=== PATIENT | female | born 1945 | race Caucasian/White ===

== ENCOUNTER → 2016-10-28 | Outpatient (CLI) | payer MEDICARE ==
[~2016-10-28] MED LIST: ACTOS PO; ACTOS30 MG PO; ALBUTEROL MININEB HHN; ALBUTEROL17 G1 IH; ALDACTONE25 MG PO; ALEVE; ALLOPURINOL300 MG PO; AMBIEN; AMBIEN CR PO; AMBIEN PO; APRESOLINE PO; ASPIRIN; ASPIRIN PO; ASPIRIN81 M1 PO; ASTELIN137 MCG INH; ATIVAN; ATIVAN PO; ATIVAN0.5 MG PO; AVINZA; AVINZA PO; BACLOFEN10 MG; BACLOFEN10 MG PO; BRIMONIDINE TART5 ML OD; CALCIUM VIT D; CALTRATE PLUS T1 TAB PO; CARTIA XT180 MG PO; CATAPRES0.3 MG PO; CHOLESTYRAMINE PO; CLONIDINE; CLONIDINE HCL0.3 MG PO; CLONIDINE PO; CLOTRIMAZOLE-BE45 GM TP; COLCHICINE PO; COLCRYS0.6 MG PO; COLESTID; COLESTID5 GM PO; COUMADIN5 MG PO; COUMADIN6 MG PO; COUMADIN7.5 MG PO; COZAAR PO; DILTIAZEM 24HR120 MG PO; DILTIAZEM 24HR240 MG PO; DITROPAN XL PO; DOCU SOFT100 M1 PO; DULOXETINE HCL60 MG PO; ENALAPRIL MALE2.5 MG PO; FAMOTIDINE PO; FERROUS GLUCON325 M1 PO; FERROUS SU324 ( 65 ); FLAX SEED OIL1000 MG PO; FLONASE 0.05% N16 G1; FLUVOXAMINE MA100 MG PO; FML LIQUIFILM IO; FUROSEMIDE40 MG PO; GABAPENTIN300 MG PO; GLUCOPHAGE XR500 MG; GLUCOPHAGE XR500 MG PO; GLUCOPHAGE850 MG PO; HYDRALAZINE HC100 MG PO; HYDRALAZINE HCL10 MG PO; HYDRALAZINE HCL50 MG PO; HYDROCODON-ACE1 EAC1 PO; HYDROCODON-ACE1 EAC9 PO; HYDROXYZINE HCL25 M1 PO; HYDROXYZINE PAM25 MG PO; IMDUR-ER60 M1 PO; ISOSORBIDE MONO60 M1 PO; K-DUR20 ME1 PO; KCL PO; KEFLEX500 MG PO; KLOR-CON PO; KRISTALOSE10 GM PO; LACTULOSE10 G/15 M1 PO; LACTULOSE10 G/15 M2 PO; LANTUS; LANTUS100 U/ML SUBQ; LASIX PO; LASIX20 MG PO; LASIX80 MG PO; LEVAQUIN PO; LEVAQUIN750 MG PO; LEVOFLOXACIN500 MG PO; LEXAPRO; LEXAPRO PO; LIDODERM30 EA TOP; LISINOPRIL20 MG PO; LOPRESSOR; LOPRESSOR PO; LOPRESSOR100 MG PO; LORAZEPAM0.5 MG PO; LORTAB 10/500 T1 TAB PO; LORTAB 7.5-5001 TAB PO; MACROBID100 MG PO; MAG-OXIDE PO; MAG-OXIDE400 MG PO; MAGNESIUM400 MG PO; MEGACE ES625 MG/5 M PO; MEGACE ORA400 MG/10 PO; METFORMIN HCL850 MG PO; METFORMIN PO; METOPROLOL SUC100 MG PO; METOPROLOL SUCC50 MG PO; MILK OF MAGNESIA PO; MIRALAX17 GM PO; MORPHINE IR PO; MORPHINE SULFAT15 MG PO; MULTI-VITAMIN1 TAB PO; MULTIVITAMIN W/1 TAB PO; NEPHROCAPS CAPSU1 MG PO; NEURONTIN PO; NEURONTIN300 MG PO; NORVASC; NORVASC PO; NORVASC2.5 MG PO; NOVOLOG FL100 UNIT/1; NOVOLOG100 U/M2 SQ; NOVOLOG100 U/M2 SUBQ; NOVOLOG100 U/M3 SQ; OMEPRAZOLE MAGN20 MG PO; OMEPRAZOLE20 M1 PO; OMEPRAZOLE20 M2 PO; PENTOXIFYLLINE PO; PEPCID AC20 M2 PO; PHARMACY; PHENERGAN25 M1 PO; PHENERGAN25 MG PO; PLAVIX; PRED-G 1% EYE DR5 ML OD; PRILOSEC2.5 MG; PROMETHAZINE HC25 MG PO; PROZAC; PROZAC PO; PROZAC10 M1 PO; RIFAMPIN150 MG PO; SENNA PO; SENNA S TABLET1 TAB PO; SERTRALINE HCL100 M1 PO; SODIUM BICARBO650 MG PO; SYMBICORT INH; TOPROL XL PO; TORADOL10 MG PO; TRAMADOL HCL50 M1 PO; TRAMADOL HCL50 M2 PO; VASERETIC 10-251 TAB PO; VASOTEC; VASOTEC PO; VASOTEC2.5 MG PO; VIT B PO; VIT B1; VIT B6; VITAMIN B1; VITAMIN B6; WARFARIN SODIUM6 M1 PO; XIFAXAN550 MG PO; ZOLOFT100 MG PO; ZYLOPRIM PO; [UNRECOGNIZED DRUG - OTHER] PO; [UNRECOGNIZED DRUG - OTHER] PO
--- NOTE | ~2016-10-28 | MY11 ---
[facility] A Service of [facility] & [facility] RADIOLOGY TEXT RESULTS PATIENT: ANTONIA MEMBRENO LOCATION: [facility] : 44 UNIT #: [id number] AGE: [address]: Houston Peters MD SEX: F ORDER DR: [id number] [facility] [address] [place], [place] [address] [id number] O MR#: [id number] Acc #: [id number] NAME: ANTONIA MEMBRENO : 1945 SEX: F STUDY DATE/TIME: 10/28/2016 12:11 UNIT: [facility] ROOM: STUDY DESCRIPTION: MY Mammogram Screening Dig Lisandro Attending Physician: Houston Peters M.D. Ordering Physician: Houston Peters M.D. Primary Care Physician: Houston Peters M.D. MEDICAL IMAGING REPORT This report is preliminary unless electronic signature is present EXAM Digital screening mammogram 10/28/2016, [facility] HISTORY 71-year-old woman positive family history, paternal aunt. Previous benign breast biopsy. Annual screen. COMPARISON Mammograms date to 11/17/2005 with most recent 10/24/2015. TECHNIQUE Digital imaging of each breast was completed utilizing screening protocol. Review includes FDA-approved CAD device. FINDINGS Breast parenchyma is partially fatty replaced and mildly heterogeneous with subareolar duct prominence and a small nodularity in each breast. There are numerous benign calcifications bilaterally including secretory calcifications and vascular calcifications. I see no interval occurring mass. There are no suspicious microcalcifications and no architectural deformity. IMPRESSION Benign mammogram. Annual screening recommended. Patient's over the age of 40 are entered into a reminder system with target due date for the next mammogram. A result letter will be sent to the patient. BIRADS: 2 Benign findings. Dictated by... [facility] A Service [facility] & [facility] RADIOLOGY TEXT RESULTS PATIENT: ANTONIA MEMBRENO LOCATION: [facility] : 44 UNIT #: [id number] AGE: [address]: Houston Peters MD SEX: F ORDER DR: Milo Hedrick M.D. THIS IS AN ELECTRONICALLY VERIFIED REPORT Milo Hedrick M.D. at 10/28/2016 3:01 PM AWILDAB/judy TD: 10/28/2016 14:35 JOB #: [id number] MEDICAL IMAGING REPORT Page 1 of 1 COPY
== END | disposition home or self-care (01) ==
LOC: CWCC 11:48
DX: Z12.31 Encounter for screening mammogram for malignant neoplasm of breast (principal); Z80.3 Family history of malignant neoplasm of breast
CPT/HCPCS: G0202

== ENCOUNTER → 2016-11-03 | Outpatient (CLI) | payer MEDICARE ==
--- NOTE | ~2016-11-03 | MR3 ---
[facility] A Service of [facility] & [facility] RADIOLOGY TEXT RESULTS PATIENT: ANTONIA MEMBRENO LOCATION: [facility] : 44 UNIT #: [id number] AGE: [address]: Houston Peters MD SEX: F ORDER DR: [id number] [place] [id number] O MR#: [id number] Acc #: [id number] NAME: ANTONIA MEMBRENO : 1945 SEX: F STUDY DATE/TIME: 11/03/2016 15:33 UNIT: [facility] ROOM: STUDY DESCRIPTION: MR Abdomen Wo Contrast Attending Physician: Houston Peters M.D. Referring Physician: Houston Peters M.D. Ordering Physician: Houston Peters M.D. Primary Care Physician: Houston Peters M.D. MRI CENTER REPORT This report is preliminary unless electronic signature is present. EXAM MR abdomen, 11/03/2016 INDICATION Portal vein thrombosis. Abnormal ultrasound. TECHNIQUE Multiplanar MRI of the abdomen without contrast. COMPARISON Abdominal ultrasound 11/03/2016. FINDINGS The liver is morphologically cirrhotic. There is a benign cyst in the medial segment left hepatic lobe. No discrete mass is identified, however, evaluation is limited without the use of IV contrast. There is no intrahepatic biliary dilatation. The common duct is mildly dilated measuring 1.1 cm at the jaylon hepatis and measures up to 1.5 cm in the proximal common bile duct. The dilated common bile duct is not significantly changed from the 2015 comparison. The gallbladder is surgically absent. No distal obstructing mass or lesion is identified, however, evaluation is limited without IV contrast. Lack of IV contrast limits evaluation of the hepatic vasculature. There is some unusual appearance of the flow voids in the portal vein, left portal vein and the right portal vein. This is concerning for possible thrombosis, however, contrast-enhanced exam would be required to confirm. Noncontrast evaluation of the pancreas, adrenal glands, and kidneys are unchanged. The kidneys are atrophic with bilateral renal cysts. There is mild splenomegaly with the spleen measuring 15 cm. There is flow voids at the gastric fundus indicating gastroesophageal STS. [facility] A Service of [facility] & [facility] RADIOLOGY TEXT RESULTS PATIENT: ANTONIA MEMBRENO LOCATION: [facility] : 44 UNIT #: [id number] AGE: [address]: Houston Peters MD SEX: F ORDER DR: varices. The bowel is not dilated. There is trace ascites. IMPRESSION 1. 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 2. There are a few benign cysts in the liver, however no suspicious hepatic abnormalities. Please note that sensitivity for depiction of hepatocellular carcinoma is limited without the use of IV contrast. 3. Abnormal flow voids within the portal vein could indicate portal venous thrombosis, however should be confirmed with a contrast-enhanced study. 4. Splenomegaly, gastroesophageal varices, and small volume of ascites is indicative of portal hypertension. 5. Mild bilateral renal atrophy. Please note that MRI contrast administration can be safely administered with a GFR of at least 15. Dictated by... Dylan Santos M.D. THIS IS AN ELECTRONICALLY VERIFIED REPORT Dylan Santos M.D. at 11/03/2016 10:06 PM TAN/benedict TD: 11/03/2016 20:47 JOB #: [id number] MRI CENTER REPORT Page 1 of 1
== END | disposition home or self-care (01) ==
LOC: SMRI 15:15
DX: I81 Portal vein thrombosis (principal); K74.60 Unspecified cirrhosis of liver; K76.89 Other specified diseases of liver; R16.1 Splenomegaly, not elsewhere classified; I86.4 Gastric varices; I85.00 Esophageal varices without bleeding; N26.1 Atrophy of kidney (terminal)
CPT/HCPCS: 74181; 76700

== ENCOUNTER → 2016-11-05 | Outpatient (CLI) | payer MEDICARE ==
--- NOTE | ~2016-11-05 | MR1 ---
[facility] A Service [facility] RADIOLOGY TEXT RESULTS PATIENT: ANTONIA MEMBRENO LOCATION: [facility] : 44 UNIT #: [id number] AGE: [address]: Houston Peters MD SEX: F ORDER DR: [id number] [place] [id number] O MR#: [id number] Acc #: [id number] NAME: ANTONIA MEMBRENO : 1945 SEX: F STUDY DATE/TIME: 11/05/2016 13:46 UNIT: [facility] ROOM: STUDY DESCRIPTION: MR Abdomen W Contrast Attending Physician: Houston Peters M.D. Referring Physician: Houston Peters M.D. Ordering Physician: Houston Peters M.D. Primary Care Physician: Houston Peters M.D. MRI CENTER REPORT This report is preliminary unless electronic signature is present. EXAM MRI abdomen. DATE OF EXAM 11/05/2016 INDICATIONS Splenic vein thrombosis. Portal vein thrombosis. Cirrhosis. TECHNIQUE Multiplanar MRI of the abdomen with IV contrast (8.5 mL MultiHance IV contrast). This was attenuation of the exam dated 11/03/2016. FINDINGS As mentioned above, the liver is morphologically cirrhotic. There is a small cyst in the posterior hepatic lobe. No suspicious hepatic mass is identified. There is a short-segment thrombus in the periphery of the left portal vein. The remainder the portal vein is patent. Hepatic veins are within normal limits. No abnormal enhancing lesions are identified in the pancreas. There is some generalized pancreatic atrophy. Spleen is enlarged. There are a few benign cysts in the kidneys. There are large gastroesophageal varices as well as a recannulated umbilical vein. IMPRESSION 1. Cirrhotic morphology of the liver. 2. No suspicious hepatic mass is identified. There is a benign cyst in the posterior right hepatic lobe. 3. Peripheral bland thrombus in the left portal vein. The main portal vein and right portal vein are widely patent. [facility] A Service [facility] RADIOLOGY TEXT RESULTS PATIENT: ANTONIA MEMBRENO LOCATION: [facility] : 44 UNIT #: [id number] AGE: [address]: Houston Peters MD SEX: F ORDER DR: Dictated by... Dylan Santos M.D. THIS IS AN ELECTRONICALLY VERIFIED REPORT Dylan Santos M.D. at 11/07/2016 7:49 AM TAN/billy TD: 11/06/2016 15:57 JOB #: [id number] MRI CENTER REPORT Page 1 of 1
[2016-11-05 14:51] LABS: POC - CREATININE 1.52 mg/dL (0.44-1.03)
== END | disposition home or self-care (01) ==
LOC: SMRI 12:40
PROVIDERS: Internal Medicine
DX: I82.890 Acute embolism and thrombosis of other specified veins (principal); K76.89 Other specified diseases of liver; I81 Portal vein thrombosis
CPT/HCPCS: 74182; 82565; A9581

== ENCOUNTER → 2016-11-17 | Outpatient (CLI) | payer MEDICARE ==
--- NOTE | ~2016-11-17 | CT57 ---
[facility] A Service [facility] RADIOLOGY TEXT RESULTS PATIENT: ANTONIA MEMBRENO LOCATION: [facility] : 44 UNIT #: [id number] AGE: [address]: Tien Abdi MD SEX: F ORDER DR: [id number] [place] [id number] [facility]. [place], [place] [address] [id number] O MR#: [id number] Acc #: [id number] NAME: ANTONIA MEMBRENO : 1945 SEX: F STUDY DATE/TIME: 11/17/2016 9:27 UNIT: [facility] ROOM: STUDY DESCRIPTION: CT Chest Wo Cont Attending Physician: Tien Adbi M.D. Referring Physician: Tien Abdi M.D. Ordering Physician: Tien Abdi M.D. Primary Care Physician: Houston Peters M.D. MEDICAL IMAGING REPORT This report is preliminary unless electronic signature is present EXAM Chest CT without contrast 11/17/2016 PROCEDURE Axial unenhanced chest CT with multiplanar reformats. This CT exam was performed with one or more of the following radiation dose reduction techniques: automatic exposure control, adjustment of mA and/or kV according to patient size, and iterative reconstruction. COMPARISON 10/09/[address] exam HISTORY No current respiratory symptoms, but routine follow up on pulmonary nodule. FINDINGS 3 small nodules in the lingula, right middle lobe, and right lower lobe are all unchanged dating back to October 2014, therefore stable for over 2 years. There is no new or suspicious nodule. Stable scarring in the right middle lobe is also redemonstrated. There is no consolidation or effusion or pneumothorax. There are spinal degenerative changes and there are changes of cirrhosis seen in the upper abdomen, but all stable since the prior study. IMPRESSION Stable pulmonary nodules. No further follow up required as 2 year stability has been demonstrated for each. Dictated by... [facility] A Service [facility] RADIOLOGY TEXT RESULTS PATIENT: ANTONIA MEMBRENO LOCATION: [facility] : 44 UNIT #: [id number] AGE: [address]: Tien Abdi MD SEX: F ORDER DR: Yair Calvin M.D. THIS IS AN ELECTRONICALLY VERIFIED REPORT Yair Calvin M.D. at 11/18/2016 3:54 PM TEV/to TD: 11/17/2016 19:11 JOB #: [id number] MEDICAL IMAGING REPORT Page 1 of 1 COPY
[2016-11-17 10:11] LABS: POC - CREATININE 1.54 mg/dL (0.44-1.03)
== END | disposition home or self-care (01) ==
LOC: CCAT 08:24
PROVIDERS: Internal Medicine Gastroenterology
DX: K74.60 Unspecified cirrhosis of liver (principal); K75.81 Nonalcoholic steatohepatitis (NASH); R91.1 Solitary pulmonary nodule; R91.8 Other nonspecific abnormal finding of lung field
CPT/HCPCS: 71250; 82565

== ENCOUNTER → 2016-12-04 | Outpatient (CLI) | payer MEDICARE ==
[2016-12-04 13:42] LABS: BASOPHIL# 0.1 X10e3 (0-0.3); BASOPHIL% 0.8 % (0-2.5); EOSINOPHIL# 0.1 X10e3 (0-0.7); EOSINOPHIL% 1.9 % (0.0-7.0); HEMATOCRIT 40.9 % (35.0-45.0); HEMOGLOBIN 13.4 gm/dL (12.0-16.0); LYMPHOCYTE# 0.7 X10e3 (1.0-3.5); MEAN CELL VOLUME 85.2 FL (83-96); MEAN CORPUSCULAR HEMOGLOBIN 27.8 PG (28-34); MEAN CORPUSCULAR HGB CONC 32.6 g/dL (30-36); MEAN PLATELET VOLUME 7.9 FL (6.5-11.5); MONOCYTE# 0.5 X10e3 (0-1.0); MONOCYTE% 6.3 % (3.0-12.0); PLATELET COUNT 160 X10e3 (140-420); RED CELL DISTRIBUTION WIDTH 16.7 % (11.0-15.5); WHITE BLOOD COUNT 7.4 X10e3 (4.0-10.5)
[2016-12-04 13:53] LABS: DIFF IND NO
[2016-12-04 14:11] LABS: INR 1.1; PROTHROMBIN TIME (PATIENT) 11.6 SECONDS (9.6-11.5)
[2016-12-04 14:23] LABS: ALBUMIN SERUM 3.1 g/dL (3.5-5.0); BILIRUBIN,TOTAL 1.1 mg/dL (0.2-2.0); BUN/CREATININE RATIO 21.17; CALCIUM SERUM 9.3 mg/dL (8.4-10.2); CREATININE SERUM 1.7 mg/dL (0.6-1.4); GLOM FILT RATE Estimated 29.6 mL/min (>60); POTASSIUM 4.6 mmol/L (3.5-5.1); PROTEIN TOTAL SERUM 7.4 g/dL (6.0-8.3)
== END | disposition home or self-care (01) ==
LOC: CLAB 12:58
PROVIDERS: Internal Medicine Gastroenterology
DX: K75.81 Nonalcoholic steatohepatitis (NASH) (principal); K74.60 Unspecified cirrhosis of liver
CPT/HCPCS: 36415; 80053; 85025; 85610

== ENCOUNTER 2016-12-26 08:01 | Emergency (ER) | payer MEDICARE ==
--- NOTE | ~2016-12-26 | CR106 ---
[facility] A Service of [facility] & [facility] RADIOLOGY TEXT RESULTS PATIENT: ANTONIA MEMBRENO LOCATION: [facility] : 44 UNIT #: [id number] AGE: [address]: Rasta King MD SEX: F ORDER DR: [id number] [facility] [address] [place], [place] [address] [id number] E MR#: [id number] Acc #: [id number] NAME: ANTONIA MEMBRENO : 1945 SEX: F STUDY DATE/TIME: 12/26/2016 9:06 UNIT: [facility] ROOM: STUDY DESCRIPTION: CR Femur 2 Views Lt Attending Physician: Rasta King M.D. Ordering Physician: Rasta King M.D. Primary Care Physician: Houston Peters M.D. MEDICAL IMAGING REPORT This report is preliminary unless electronic signature is present EXAM Left femur total of 5 views HISTORY Fell 1 day ago complaining of pain. FINDINGS Five views of the femur are submitted. Bony elements are intact and in normal alignment. No fractures are seen. There is atherosclerotic disease in the distal superficial femoral and popliteal arteries. CONCLUSION Negative. Dictated by... Prakash Suarez M.D. THIS IS AN ELECTRONICALLY VERIFIED REPORT Prakash Suarez M.D. at 12/26/2016 4:26 PM LAZARO/zoya TD: 12/26/2016 11:00 JOB #: [id number] MEDICAL IMAGING REPORT Page 1 of 1 COPY
--- NOTE | ~2016-12-26 | CR126 ---
[facility] A Service of [facility] & [facility] RADIOLOGY TEXT RESULTS PATIENT: ANTONIA MEMBRENO LOCATION: [facility] : 44 UNIT #: [id number] AGE: [address]: Rasta King MD SEX: F ORDER DR: [id number] [facility] [address] [place], [place] [address] [id number] E MR#: [id number] Acc #: [id number] NAME: ANTONIA MEMBRENO : 1945 SEX: F STUDY DATE/TIME: 12/26/2016 9:13 UNIT: [facility] ROOM: STUDY DESCRIPTION: CR Foot Complete Min 3 View Lt Attending Physician: Rasta King M.D. Ordering Physician: Rasta King M.D. Primary Care Physician: Houston Peters M.D. MEDICAL IMAGING REPORT This report is preliminary unless electronic signature is present EXAM 3 views left foot INDICATION Left foot pain after a fall 1 day ago. FINDINGS No acute fracture or subluxation of the left foot is identified. No focal soft tissue abnormalities are seen. Patient does have some degenerative changes including some enthesopathic change seen along the plantar aspect of the calcaneus. IMPRESSION No acute fracture or subluxation. Dictated by... Ayde Dixon M.D. THIS IS AN ELECTRONICALLY VERIFIED REPORT Ayde Dixon M.D. at 12/26/2016 4:27 PM AFF/jw TD: 12/26/2016 10:55 JOB #: [id number] MEDICAL IMAGING REPORT Page 1 of 1 COPY
--- NOTE | ~2016-12-26 | CR172 ---
[facility] A Service of [facility] & [facility] RADIOLOGY TEXT RESULTS PATIENT: ANTONIA MEMBRENO LOCATION: [facility] : 44 UNIT #: [id number] AGE: [address]: Rasta King MD SEX: F ORDER DR: [id number] [facility] [address] [place], [place] [address] [id number] E MR#: [id number] Acc #: [id number] NAME: ANTONIA MEMBRENO : 1945 SEX: F STUDY DATE/TIME: 12/26/2016 9:07 UNIT: [facility] ROOM: STUDY DESCRIPTION: CR Knee 3 Views Lt Attending Physician: Rasta King M.D. Ordering Physician: Rasta King M.D. Primary Care Physician: Houston Peters M.D. MEDICAL IMAGING REPORT This report is preliminary unless electronic signature is present EXAM 3 views of the left knee HISTORY Left knee pain after a fall one day ago. FINDINGS No acute fracture or subluxation of the left knee is identified. No suprapatellar effusion is seen. The patient does have some degenerative changes and is also noted to have some chondrocalcinosis. No aggressive osseous abnormalities are seen. IMPRESSION No acute fracture or subluxation identified. Dictated by... Ayde Dixon M.D. THIS IS AN ELECTRONICALLY VERIFIED REPORT Ayde Dixon M.D. at 12/26/2016 4:27 PM AFF/jw TD: 12/26/2016 10:53 JOB #: [id number] MEDICAL IMAGING REPORT Page 1 of 1 COPY
--- NOTE | ~2016-12-26 | CR93 ---
[facility] A Service of [facility] & [facility] RADIOLOGY TEXT RESULTS PATIENT: ANTONIA MEMBRENO LOCATION: [facility] : 44 UNIT #: [id number] AGE: [address]: Rasta King MD SEX: F ORDER DR: [id number] [facility] [address] [place], [place] [address] [id number] E MR#: [id number] Acc #: [id number] NAME: ANTONIA MEMBRENO : 1945 SEX: F STUDY DATE/TIME: 12/26/2016 9:03 UNIT: [facility] ROOM: STUDY DESCRIPTION: CR Elbow Min 3 Views Lt Attending Physician: Rasta King M.D. Ordering Physician: Rasta King M.D. Primary Care Physician: Houston Peters M.D. MEDICAL IMAGING REPORT This report is preliminary unless electronic signature is present EXAM 3 views of the left elbow. HISTORY Left elbow pain after a fall a day ago. FINDINGS No acute fracture or subluxation of the left elbow is identified. I do not see a definite elbow effusion, although the exam is limited, due to poor patient positioning on the lateral view. The patient does have degenerative changes involving the left elbow. IMPRESSION No acute fracture or subluxation identified. Dictated by... Ayde Dixon M.D. THIS IS AN ELECTRONICALLY VERIFIED REPORT Ayde Dixon M.D. at 12/26/2016 4:27 PM AFF/js TD: 12/26/2016 10:55 JOB #: [id number] MEDICAL IMAGING REPORT Page 1 of 1 COPY
== END 2016-12-26 11:00 | disposition home or self-care (01) ==
LOC: CED 08:01
DX: S90.32XA Contusion of left foot, initial encounter (principal); S90.02XA Contusion of left ankle, initial encounter; I50.9 Heart failure, unspecified; E11.9 Type 2 diabetes mellitus without complications; I48.91 Unspecified atrial fibrillation; Z88.5 Allergy status to narcotic agent; Z88.7 Allergy status to serum and vaccine; Z79.899 Other long term (current) drug therapy; W01.0XXA Fall on same level from slipping, tripping and stumbling without subsequent striking against object, initial encounter
CPT/HCPCS: 73080; 73552; 73562; 73630; 99284

== ENCOUNTER → 2017-04-15 | Outpatient (CLI) | payer MEDICARE ==
--- NOTE | ~2017-04-15 | US77 ---
[facility] A Service of [facility] RADIOLOGY TEXT RESULTS PATIENT: ANTONIA MEMBRENO LOCATION: [facility] : 44 UNIT #: [id number] AGE: [address]: Ariel Francois MD SEX: F ORDER DR: [id number] [facility] [address] [place], [place] [address] [id number] O MR#: [id number] Acc #: [id number] NAME: ANTONIA MEMBRENO : 1945 SEX: F STUDY DATE/TIME: 04/15/2017 15:36 UNIT: [facility] ROOM: STUDY DESCRIPTION: US Kidney Bilateral Complete Attending Physician: Samy Francois M.D. Referring Physician: Samy Francois M.D. Ordering Physician: Samy Francois M.D. Primary Care Physician: Houston Peters M.D. MEDICAL IMAGING REPORT This report is preliminary unless electronic signature is present EXAM Renal ultrasound. INDICATION Chronic kidney disease, stage III. TECHNIQUE Hurst-scale and color Doppler sonographic images were obtained through the kidneys and bladder. FINDINGS Right kidney measures 11.3 x 4.9 x 4.7 cm. Left kidney measures 3.9 x 8.3 x 4.4 cm. No hydronephrosis is seen on either side. I do think that both kidneys are echogenic in appearance, which may certainly reflect chronic medical renal disease. Patient does have a cyst arising from the right kidney, measuring 2.1 x 1.5 x 2.2 cm. Urinary bladder appears unremarkable. IMPRESSION 1. Right renal cyst. 2. Both kidneys appear somewhat echogenic which certainly could reflect some underlying chronic medical renal disease. Please note patient did have a prior renal ultrasound in November of 2016, which showed multiple bilateral renal cysts. Dictated by... Ayde Dixon M.D. THIS IS AN ELECTRONICALLY VERIFIED REPORT Ayde Dixon M.D. at 04/16/2017 5:43 PM AFF/pc TD: 04/16/2017 09:37 [facility] A Service of [facility] RADIOLOGY TEXT RESULTS PATIENT: ANTONIA MEMBRENO LOCATION: [facility] #: [id number] : 43 UNIT #: [id number] AGE: [address]: Ariel Francois MD SEX: F ORDER DR: JOB #: [id number] MEDICAL IMAGING REPORT Page 1 of 1 COPY
== END | disposition home or self-care (01) ==
LOC: CGUS 14:39
DX: N17.9 Acute kidney failure, unspecified (principal); N18.3 Chronic kidney disease, stage 3 (moderate); N28.1 Cyst of kidney, acquired
CPT/HCPCS: 76770